=== PATIENT | female | born 1960 | race Caucasian/White ===

== ENCOUNTER 2017-03-07 08:40 | Outpatient (CLI) | payer BC | END 2017-03-07 08:41 | disposition home or self-care (01) | DX: B00.1 Herpesviral vesicular dermatitis (principal) ==

== ENCOUNTER 2017-03-14 15:14 | Outpatient (CLI) | payer BC | END 2017-03-14 15:15 | disposition home or self-care (01) | DX: Z79.899 Other long term (current) drug therapy (principal) ==

== ENCOUNTER 2017-03-19 08:41 | Outpatient (CLI) | payer BC | END 2017-03-19 08:42 | disposition home or self-care (01) | DX: I10 Essential (primary) hypertension (principal); R06.00 Dyspnea, unspecified; R09.89 Other specified symptoms and signs involving the circulatory and respiratory systems; I73.00 Raynaud's syndrome without gangrene ==

== ENCOUNTER 2018-01-27 09:38 | Outpatient (CLI) | payer BC ==
[2018-01-27 18:10] LABS: BASOPHILS % (AUTO) 0.4 %; EOSINOPHILS # (AUTO) 0.1 10^3/uL (0.0-0.7); EOSINOPHILS % (AUTO) 1.6 %; HGB - HEMOGLOBIN 12.8 g/dL (12.0-16.0); LYMPHOCYTES # (AUTO) 1.7 10^3/uL (1.5-3.5); LYMPHOCYTES % (AUTO) 26.6 %; MEAN CORPUSCULAR HEMOGLOBIN 30.2 pg (27.0-31.0); MEAN CORPUSCULAR VOLUME 91.5 fL (81.0-99.0); MEAN PLATELET VOLUME 8.6 fL (7.9-10.8); MONOCYTES # (AUTO) 0.5 10^3/uL (0.0-1.0); MONOCYTES % (AUTO) 7.8 %; NEUTROPHILS # (AUTO) 4.1 10^3/uL (1.5-6.6); NEUTROPHILS % (AUTO) 63.6 %; PLT - PLATELET COUNT 320 10^3/uL (130-450); RED BLOOD COUNT 4.23 10^6/uL (4.20-5.40); RED CELL DISTRIBUTION WIDTH 12.4 % (12.0-15.0); WHITE BLOOD COUNT 6.4 x10^3/uL (4.8-10.8)
[2018-01-27 18:13] LABS: MICROALBUM/CREATININE RATIO,UR 22.9 ug/mg (<30.0)
[2018-01-27 18:15] LABS: ALBUMIN 3.9 g/dL (3.2-5.5); ALBUMIN/GLOBULIN RATIO 1.3 (1.0-2.2); CREATININE 0.7 mg/dL (0.4-1.0); TOTAL PROTEIN 6.9 g/dL (6.7-8.2)
[2018-01-27 19:32] LABS: RHEUMATOID FACTOR NEGATIVE (Negative)
== END 2018-01-27 09:39 | disposition home or self-care (01) ==
LOC: LAB.F 09:38
PROVIDERS: ATTEND Specialist
DX: I73.00 Raynaud's syndrome without gangrene (principal); I10 Essential (primary) hypertension; N20.0 Calculus of kidney
CPT/HCPCS: 36415; 80053; 82043; 82570; 85025; 86430

== ENCOUNTER 2018-02-24 14:49 | Outpatient (CLI) | payer BC ==
[2018-02-24 17:45] LABS: BASOPHILS # (AUTO) 0.1 10^3/uL (0.0-0.1); EOSINOPHILS # (AUTO) 0.1 10^3/uL (0.0-0.7); EOSINOPHILS % (AUTO) 1.6 %; HGB - HEMOGLOBIN 12.6 g/dL (12.0-16.0); LYMPHOCYTES # (AUTO) 2.4 10^3/uL (1.5-3.5); LYMPHOCYTES % (AUTO) 26.5 %; MEAN CORPUSCULAR HEMOGLOBIN 29.5 pg (27.0-31.0); MEAN CORPUSCULAR HGB CONC 32.4 g/dL (32.0-36.0); MEAN PLATELET VOLUME 8.8 fL (7.9-10.8); MONOCYTES # (AUTO) 0.9 10^3/uL (0.0-1.0); MONOCYTES % (AUTO) 9.7 %; NEUTROPHILS # (AUTO) 5.6 10^3/uL (1.5-6.6); NEUTROPHILS % (AUTO) 61.2 %; PLT - PLATELET COUNT 326 10^3/uL (130-450); RED BLOOD COUNT 4.26 10^6/uL (4.20-5.40); WHITE BLOOD COUNT 9.1 x10^3/uL (4.8-10.8)
== END 2018-02-24 14:50 | disposition home or self-care (01) ==
LOC: LAB.F 14:49
PROVIDERS: ATTEND Physician Assistant Surgical
DX: T84.84XA Pain due to internal orthopedic prosthetic devices, implants and grafts, initial encounter (principal)
CPT/HCPCS: 36415; 85025; 85651; 86140

== ENCOUNTER 2019-07-07 16:32 | Outpatient (CLI) | payer BC ==
--- NOTE | 2019-07-08 13:24 | XRAY Report ---
Reason: PAINFUL RT FOOT X MONTHS Procedure Date: 07/07/2019 Accession Number: [id number] / [id number] Procedure: XR - Foot 3 View RT CPT Code: FULL RESULT: EXAM: RIGHT FOOT RADIOGRAPHY EXAM DATE: 07/07/2019 04:44 PM. CLINICAL HISTORY: PAINFUL RT FOOT X MONTHS. COMPARISON: None. TECHNIQUE: 3 views. FINDINGS: Bones: Normal. No fractures or bone lesions. Joints: Normal. No subluxations. Soft Tissues: Normal. No soft tissue swelling. IMPRESSION: Normal foot radiography. RADIA
== END 2019-07-07 16:33 | disposition home or self-care (01) ==
LOC: DI 16:32
PROVIDERS: ATTEND Podiatrist
DX: M79.671 Pain in right foot (principal)

== ENCOUNTER 2019-08-10 07:31 | Outpatient (CLI) | payer BC ==
[2019-08-10 11:42] LABS: ALBUMIN 4.1 g/dL (3.2-5.5); ALBUMIN/GLOBULIN RATIO 1.3 (1.0-2.2); ALKALINE PHOSPHATASE 46 IU/L (42-121); ALT ALANINE AMINOTRANSFERASE 55 IU/L (10-60); AST ASPARTATE AMINOTRANSFERASE 41 IU/L (10-42); BILIRUBIN,TOTAL 1.3 mg/dL (0.2-1.0); BUN - BLOOD UREA NITROGEN 26 mg/dL (6-20); CALCIUM 9.5 mg/dL (8.5-10.3); CARBON DIOXIDE - CO2 32 mmol/L (21-32); CHLORIDE 102 mmol/L (101-111); CHOL/HDL RATIO 3.9 (<4.4); CHOLESTEROL 240 mg/dL; CREATININE 0.7 mg/dL (0.4-1.0); GFR - MDRD 86 (>89); GLUCOSE 87 mg/dL (70-100); HDL CHOLESTEROL 62 mg/dL; LDL CHOLESTEROL,CALCULATED 167 mg/dL; LDL/HDL RATIO 2.7 (<4.4); SODIUM 142 mmol/L (135-145); TOTAL PROTEIN 7.2 g/dL (6.7-8.2); VLDL CHOLESTEROL 11 mg/dL
== END 2019-08-10 07:32 | disposition home or self-care (01) ==
LOC: LAB.S 07:31
PROVIDERS: ATTEND Family Medicine Sports Medicine
DX: I10 Essential (primary) hypertension (principal)
CPT/HCPCS: 36415; 80053; 80061; 83721

== ENCOUNTER 2019-10-15 13:33 | Outpatient (CLI) | payer BC ==
--- NOTE | 2019-10-15 15:47 | MRI Report ---
Reason: CHRONIC PAIN ACHILLES/PERONEAL TENDON Procedure Date: 10/15/2019 Accession Number: [id number] / [id number] Procedure: MRI - Ankle RT W/O CPT Code: Final Report FULL RESULT: EXAM: RIGHT ANKLE/HINDFOOT MRI WITHOUT CONTRAST EXAM DATE: 10/15/2019 03:07 PM. CLINICAL HISTORY: CHRONIC PAIN ACHILLES/PERONEAL TENDON. COMPARISON: FOOT 3 VIEW RT 07/07/2019 4:38 PM. TECHNIQUE: Multiplanar, multisequence T1-weighted and fluid-sensitive sequences of the ankle/hindfoot without contrast. Other: None. FINDINGS: Bones: No fractures or subluxations. No marrow edema. No bone lesions. Articular Cartilage: Unremarkable. Ligaments: The anterior and posterior tibiofibular, anterior and posterior talofibular, and calcaneofibular ligaments are intact. The deep and superficial deltoid and spring ligaments are intact. Anterior Tendons: The tibialis anterior, extensor hallucis longus, and extensor digitorum longus tendons are unremarkable. Medial Tendons: The tibialis posterior, flexor digitorum longus, and flexor hallucis longus tendons are unremarkable. Lateral Tendons: Mild peroneus peroneus brevis tenosynovitis without tear. The peroneus longus is normal. Achilles Tendon: The Achilles tendon is unremarkable. Musculature: No edema or fatty atrophy. Other: A small tibiotalar joint effusion is present. The contents of the sinus tarsi and tarsal tunnel are unremarkable. No plantar fasciitis. The subcutaneous tissues are unremarkable. IMPRESSION: 1. Mild peroneus brevis tenosynovitis without tear. 2. Normal Achilles tendon. 3. Small tibiotalar joint effusion of uncertain source. RADIA
== END 2019-10-15 13:34 | disposition home or self-care (01) ==
LOC: DI 13:33
PROVIDERS: ATTEND Podiatrist
DX: M65.871 Other synovitis and tenosynovitis, right ankle and foot (principal); M25.471 Effusion, right ankle

== ENCOUNTER 2019-12-17 15:20 | Emergency (ER) | payer BC ==
[2019-12-17 15:44] LABS: BILIRUBIN,URINE NEGATIVE (NEGATIVE); GLUCOSE, URINE (UA) NEGATIVE (NEGATIVE); KETONES,URINE (UA) NEGATIVE (NEGATIVE); LEUKOCYTE ESTERASE, URINE NEGATIVE (NEGATIVE); NITRITE,URINE NEGATIVE (NEGATIVE); OCCULT BLOOD,URINE LARGE (NEGATIVE); PH,URINE 5.5 PH (5.0-7.5); PROTEIN,URINE NEGATIVE (NEGATIVE); UROBILINOGEN,URINE 0.2 (NORMAL) E.U./dL (NORMAL)
[2019-12-17 15:47] LABS: CLARITY,URINE HAZY (CLEAR)
[2019-12-17 15:58] LABS: BACTERIA,URINE None Seen /HPF (None Seen); RBC,URINE TNTC /HPF (0-5); SQUAMOUS EPITHELIAL CELL,UR FEW Squamous (<= Few)
--- NOTE | 2019-12-17 18:04 | ED Physician Documentation ---
History of Present Illness - Stated complaint Stated Complaint: F - Chief complaint Chief Complaint: Abd Pain - Additonal information Additional information: This is a 59-year-old female with a history of possible polycystic kidney diseas e, past kidney stones, presents with right flank pain, nausea, vomiting which is now resolved, and blood in her urine. Patient states that in the past she has passed 8 kidney stones, the first 1 required a stent and retrieval. Last night she began having urinary frequency, she notes with a blood in her urine, and she was going to go see her primary care provider but when she was in the car she ni d sudden onset of severe right flank pain associated with nausea. She came here in bed. She has had a complete resolution of her symptoms, now she continues to have a little bit of urgency and frequency, but is not having any pain. Review of Systems Constitutional: denies: Fever Cardiac: denies: Chest pain / pressure Respiratory: denies: Dyspnea GI: reports: Abdominal Pain : reports: Frequency PD PAST MEDICAL HISTORY - Present Medications Home Medications: Ambulatory Orders Medication Instructions Recorded Confirmed Ondansetron Odt [Zofran] 4 mg TL Q6H PRN #10 tablet 12/17/19 Oxycodone HCl/Acetaminophen 1 - 2 each PO Q6H PRN #14 tablet 12/17/19 [Percocet 5-325 mg Tablet] Tamsulosin [Flomax] 0.4 mg PO DAILY #14 capsule 12/17/19 - Allergies Allergies/Adverse Reactions: Allergies Allergy/AdvReac Type Severity Reaction Status Date / Time amoxicillin Allergy Rash Verified 12/17/19 15:29 clindamycin Allergy Rash Verified 12/17/19 15:29 meloxicam Allergy Rash Verified 12/17/19 15:33 Penicillins Allergy Rash Verified 12/17/19 15:29 Sulfa (Sulfonamide Allergy Rash Verified 12/17/19 15:29 Antibiotics) PD ED PE NORMAL - Vitals Vital signs reviewed: Yes - General General: Alert and oriented X 3, No acute distress - HEENT HEENT: PERRL - Neck Neck: Supple, no meningeal sign - Cardiac Cardiac: RRR, No murmur - Respiratory Respiratory: Clear bilaterally - Abdomen Abdomen: Normal bowel sounds, Soft, Non tender, Non distended - Derm Derm: Warm and dry - Extremities Extremities: No deformity - Neuro Neuro: Alert and oriented X 3 - Psych Psych: Normal mood, Normal affect Results - Vitals Vitals: Oxygen O2 Source Room air - Labs Labs: Laboratory Tests 12/17/19 12/17/19 12/17/19 15:36 18:17 18:17 WBC 10.3 RBC 4.35 Hgb 13.2 Hct 40.7 MCV 93.6 MCH 30.3 MCHC 32.4 RDW 12.0 Plt Count 341 MPV 10.0 Neut # (Auto) 7.3 H Lymph # (Auto) 2.0 [place] # (Auto) 0.7 Eos # (Auto) 0.1 Baso # (Auto) 0.1 Absolute Nucleated RBC 0.00 Nucleated RBC % 0.0 Sodium 141 Potassium 3.7 Chloride 104 Carbon Dioxide 26 Anion Gap 11.0 BUN 28 H Creatinine 0.6 Estimated GFR (MDRD) 102 Glucose 97 Calcium 9.9 Total Bilirubin 1.0 AST 17 ALT 18 Alkaline Phosphatase 74 Total Protein 7.9 Albumin 4.5 Globulin 3.4 Albumin/Globulin Ratio 1.3 Lipase 59 H Urine Color YELLOW Urine Clarity HAZY Urine pH 5.5 Ur Specific [place] 1.025 Urine Protein NEGATIVE Urine Glucose (UA) NEGATIVE Urine Ketones NEGATIVE Urine Occult Blood LARGE H Urine Nitrite NEGATIVE Urine Bilirubin NEGATIVE Urine Urobilinogen 0.2 (NORMAL) Ur Leukocyte Esterase NEGATIVE Urine RBC TNTC H Urine WBC 0-3 Ur Squamous Epith Cells FEW Squamous Urine Bacteria None Seen Ur Microscopic Review INDICATED Urine Culture Comments NOT INDICATED - Rads (name of study) CT abd/pelvis Radiology: Other (Likely 2x3mm stone in the distal right ureter, phlebolith also possible.) PD MEDICAL DECISION MAKING - ED course Complexity details: considered differential (Kidney stone, UTI, pyelonephritis, ovarian cyst, MSK pain) ED course: Pt is asymptomatic on my evaluation, her symptoms have passed while she is in the waiting room. Her labs are unremarkable other than blood in her urine without signs of infection. This appears to be a kidney stone clinically and based on the UA, I discussed options for further diagnosis and treatment and given her history of requiring procedures for stone removal and her age Ct was obtained that showed a likely distal R stone. She continues to be asymptomatic. I discussed expectant management, PCP and urology follow up, return precautions. I prescribed pain and nausea medications and tamsulosin. Pt continues to be pain free and was discharged home. I did discuss review of her CT with her PCP for follow up on incidental findings as well. Departure - Departure Disposition: 01 Home, Self Care Clinical Impression: Kidney stone Condition: Good Instructions: ED Stone Renal W Colic Follow-Up: RYAN GAO MD [Primary Care Provider] - Prescriptions: Ondansetron Odt [Zofran] 4 mg TL Q6H PRN #10 tablet PRN Reason: Nausea / Vomiting Oxycodone HCl/Acetaminophen [Percocet 5-325 mg Tablet] 1 - 2 each PO Q6H PRN #14 tablet PRN Reason: pain Tamsulosin [Flomax] 0.4 mg PO DAILY #14 capsule Comments: You likely have a kidney stone in your distal right ureter. I am prescribing you some pain and nausea medications to control your symptoms, which may come back. If you are having severe pain not controlled with the pain medications, fever, or any other concerning symptoms please return to the emergency department. Please also follow-up with your primary care provider to review your CT scan as it had some incidental cysts on your liver and other findings that do not appear to be related to your episode today. Discharge Date/Time: 12/17/19 20:24
[2019-12-17 18:36] LABS: BASOPHILS # (AUTO) 0.1 10^3/uL (0.0-0.1); BASOPHILS % (AUTO) 0.7 %; EOSINOPHILS # (AUTO) 0.1 10^3/uL (0.0-0.7); HGB - HEMOGLOBIN 13.2 g/dL (12.0-16.0); LYMPHOCYTES % (AUTO) 19.7 %; MEAN CORPUSCULAR HEMOGLOBIN 30.3 pg (27.0-31.0); MEAN CORPUSCULAR HGB CONC 32.4 g/dL (32.0-36.0); MEAN CORPUSCULAR VOLUME 93.6 fL (81.0-99.0); MONOCYTES # (AUTO) 0.7 10^3/uL (0.0-1.0); MONOCYTES % (AUTO) 6.8 %; NEUTROPHILS # (AUTO) 7.3 10^3/uL (1.5-6.6); NEUTROPHILS % (AUTO) 71.5 %; PLT - PLATELET COUNT 341 10^3/uL (130-450); RED BLOOD COUNT 4.35 10^6/uL (4.20-5.40); WHITE BLOOD COUNT 10.3 x10^3/uL (4.8-10.8)
[2019-12-17 18:50] LABS: ALBUMIN 4.5 g/dL (3.2-5.5); ALBUMIN/GLOBULIN RATIO 1.3 (1.0-2.2); CALCIUM 9.9 mg/dL (8.5-10.3); CREATININE 0.6 mg/dL (0.4-1.0); TOTAL PROTEIN 7.9 g/dL (6.7-8.2)
--- NOTE | 2019-12-17 19:43 | CT Report ---
Reason: R flank pain, hematuria, ?polycystic dz Procedure Date: 12/17/2019 Accession Number: [id number] / [id number] Procedure: CT - Abdomen/Pelvis WO CPT Code: Final Report FULL RESULT: EXAM: CT ABDOMEN AND PELVIS (CT KUB) EXAM DATE: 12/17/2019 06:47 PM. CLINICAL HISTORY: Right flank pain and hematuria. Question polycystic disease. COMPARISONS: CT abdomen/pelvis 09/16/2012. TECHNIQUE: Routine axial helical CT imaging was performed through the abdomen and pelvis without IV contrast. Reconstructions: Coronal and sagittal. In accordance with CT protocol optimization, one or more of the following dose reduction techniques were utilized for this exam: automated exposure control, adjustment of mA and/or KV based on patient size, or use of iterative reconstructive technique. FINDINGS: The lack of intravenous contrast limits evaluation of the solid organs and vascular structures. Imaged chest: Unremarkable. Liver: The liver demonstrates a few scattered tiny subcentimeter low-density foci, technically too small to accurately characterize and indeterminant but statistically likely to represent tiny cysts. Gallbladder: Unremarkable. Biliary: Unremarkable. Pancreas: Unremarkable. Spleen: Unremarkable. Adrenal glands: Unremarkable. Kidneys: Nonobstructing bilateral renal parenchymal stones. There is a new 2 x 3 mm calcification within the right pelvis adjacent to versus within the distal right ureter. There is a 4.4 cm simple appearing cyst within the interpolar region of the left kidney. Urinary bladder: Unremarkable. Reproductive organs: Hysterectomy. Bowel: Unremarkable. Stomach: Unremarkable. Appendix: The appendix is not reliably identified. Surgical clip adjacent to the cecum suggests prior appendectomy. Miscellaneous: No free fluid. No extraluminal gas. Aorta: No significant aortic atherosclerosis. Normal in caliber. Lymph nodes: No pathologically enlarged lymph nodes identified. Bones: Grade 1 anterolisthesis L4 and L5, similar to prior. No suspicious osseous lesions. Sidewalls: Unremarkable. IMPRESSION: 1. Nonobstructing bilateral renal parenchymal stones. 2. No hydronephrosis. There is a 2 x 3 mm calcification within the right pelvis adjacent to versus within the distal right ureter. Differential includes phlebolith adjacent to the right ureter versus nonobstructing ureteral stone. 3. Other chronic findings detailed above. RADIA
[2019-12-17 20:09] VITALS: BP 157/103
[2019-12-17] MEDS ORDERED: oxyCODONE/ACET 5/325 Prepack 4 PO STA (20:17)
[2019-12-17] MEDS ORDERED: TAMSULOSIN 0.4 MG CAPSULE PO STA (20:36)
[2019-12-18] MEDS ORDERED: TAMSULOSIN 0.4 MG CAPSULE PO SCH (09:00)
== END 2019-12-17 20:24 | disposition home or self-care (01) ==
LOC: ED 15:20
DX: N20.1 Calculus of ureter (principal); Q61.3 Polycystic kidney, unspecified
CPT/HCPCS: 36415; 74176; 80053; 81001; 83690; 85025; 99284; A9270; 81003; 87086

== ENCOUNTER 2022-02-27 08:00 | Outpatient (CLI) | payer BC ==
[2022-02-27 14:52] LABS: BILIRUBIN,URINE NEGATIVE (NEGATIVE); CLARITY,URINE CLEAR (CLEAR); GLUCOSE, URINE (UA) NEGATIVE (NEGATIVE); KETONES,URINE (UA) NEGATIVE (NEGATIVE); LEUKOCYTE ESTERASE, URINE NEGATIVE (NEGATIVE); NITRITE,URINE NEGATIVE (NEGATIVE); OCCULT BLOOD,URINE SMALL (NEGATIVE); PROTEIN,URINE NEGATIVE (NEGATIVE); UROBILINOGEN,URINE 0.2 (NORMAL) E.U./dL (NORMAL)
[2022-02-27 15:40] LABS: BACTERIA,URINE None Seen /HPF (None Seen); RBC,URINE 0-5 /HPF (0-5); SQUAMOUS EPITHELIAL CELL,UR FEW Squamous (<= Few); WBC,URINE 0-3 /HPF (0-5)
== END 2022-02-27 23:59 ==
LOC: LAB.R 08:00
PROVIDERS: ATTEND Emergency Medicine
DX: R31.9 Hematuria, unspecified (principal)
CPT/HCPCS: 81001; 87086

== ENCOUNTER 2023-04-04 07:11 | Outpatient (CLI) | payer BC ==
[2023-04-04 14:56] LABS: BUN - BLOOD UREA NITROGEN 25 mg/dL (6-20); CALCIUM 9.4 mg/dL (8.5-10.3); CARBON DIOXIDE - CO2 28 mmol/L (21-32); CHLORIDE 105 mmol/L (101-111); CHOL/HDL RATIO 2.8 (<4.4); CHOLESTEROL 245 mg/dL; CREATININE 0.6 mg/dL (0.4-1.0); GFR - MDRD 101 (>89); GLUCOSE 97 mg/dL (70-100); HDL CHOLESTEROL 87 mg/dL; LDL CHOLESTEROL,CALCULATED 149 mg/dL; LDL/HDL RATIO 1.7 (<4.4); SODIUM 140 mmol/L (135-145); TRIGLYCERIDES 46 mg/dL; VLDL CHOLESTEROL 9 mg/dL
== END 2023-04-04 07:12 | disposition home or self-care (01) ==
LOC: LAB.S 07:11
PROVIDERS: ATTEND Internal Medicine Cardiovascular Disease
DX: I10 Essential (primary) hypertension (principal)
CPT/HCPCS: 36415; 80048; 80061; 83721

== ENCOUNTER 2023-08-07 08:00 | Outpatient (CLI) | payer BC | END 2023-08-07 23:59 | disposition home or self-care (01) | LOC: LAB.S 08:00 | PROVIDERS: ATTEND Registered Nurse | DX: R30.0 Dysuria (principal) | CPT/HCPCS: 87086 ==

== ENCOUNTER 2023-09-22 13:57 | Emergency (ER) | payer BC ==
[2023-09-22 14:29] LABS: BASOPHILS # (AUTO) 0.1 10^3/uL (0.0-0.1); BASOPHILS % (AUTO) 1.3 %; EOSINOPHILS # (AUTO) 0.1 10^3/uL (0.0-0.7); HCT - HEMATOCRIT 44.4 % (37.0-47.0); HGB - HEMOGLOBIN 14.3 g/dL (12.0-16.0); LYMPHOCYTES # (AUTO) 2.3 10^3/uL (1.5-3.5); LYMPHOCYTES % (AUTO) 28.5 %; MEAN CORPUSCULAR HEMOGLOBIN 29.7 pg (27.0-31.0); MEAN CORPUSCULAR HGB CONC 32.2 g/dL (32.0-36.0); MEAN CORPUSCULAR VOLUME 92.3 fL (81.0-99.0); MEAN PLATELET VOLUME 9.9 fL (7.9-10.8); MONOCYTES # (AUTO) 0.6 10^3/uL (0.0-1.0); MONOCYTES % (AUTO) 7.8 %; NEUTROPHILS # (AUTO) 4.8 10^3/uL (1.5-6.6); NEUTROPHILS % (AUTO) 61.3 %; PLT - PLATELET COUNT 366 10^3/uL (130-450); RED BLOOD COUNT 4.81 10^6/uL (4.20-5.40); RED CELL DISTRIBUTION WIDTH 12.1 % (12.0-15.0); WHITE BLOOD COUNT 7.9 x10^3/uL (4.8-10.8)
[2023-09-22 14:43] LABS: ALBUMIN 4.5 g/dL (3.2-5.5); ALBUMIN/GLOBULIN RATIO 1.5 (1.0-2.2); CREATININE 0.7 mg/dL (0.6-1.3); POTASSIUM 3.9 mmol/L (3.5-4.5); TOTAL PROTEIN 7.6 g/dL (6.4-8.9)
--- NOTE | 2023-09-22 14:45 | ED Physician Documentation ---
PD HPI CHEST PAIN - Stated complaint Stated Complaint: CHEST PX - Chief complaint Chief Complaint: Cardiac - History obtained from History obtained from: Patient - Additional information Additional information: This is a 63-year-old female who has a longstanding history of hypertension and is followed by cardiology for this. She is currently on losartan 100 mg that she takes nightly. She previously was also on metoprolol but had adverse effects to this medication thus stopped taking it about a week and a half ago. Patient has also had adverse effects to numerous other classes of medicine incl uding amlodipine, hydralazine, carvedilol, lisinopril, Miladis Dralzine, and hydrochlorothiazide. The patient states that today or for the last couple of days her blood pressure has been somewhat elevated but she thought possibly due to the fact that she was taking some cold medication. She states she did look it up online and it was apparently safe for hypertension but she did note that her blood pressure increased while taking this medication. She has also been taking Aleve the last couple days but stopped yesterday when she noted that her blood pressure was elevated. Patient states that she did have a mild headache that was different than her regular migraines and that she checked her blood pressure and it has been in the 190s over 100s. She did have some mild left- sided nonradiating chest pain at that time but that has since gone away. She does not currently have any chest pain.She did talk to her primary doctor who encouraged her to come into the ER due to her hypertensionAnd chest pain. The patient states that it is elevated more now because shortly prior to coming in she I had a family disagreement and feels somewhat worked up from that. She is not at any point had shortness of breath, no abdominal pain nausea vomiting or diarrhea, no diaphoresis though patient notes that she did have diaphoresis with metoprolol which is why she stopped taking it. She has not had any lower extremity edema. She is voiding well. She states she does not always adhere to a low-salt diet but tries to do so, she exercises daily sometimes 2 to 2-1/2 hours and states her blood pressure typically is quite low controlled for for 5 hours after she exercises but then it will increase. Her baseline blood pressures in the 160 170/90 range. Review of Systems Constitutional: reports: Reviewed and negative Eyes: reports: Reviewed and negative Ears: reports: Reviewed and negative Nose: reports: Reviewed and negative Throat: reports: Reviewed and negative Cardiac: reports: Reviewed and negative Respiratory: reports: Reviewed and negative GI: reports: Reviewed and negative : reports: Reviewed and negative Skin: reports: Reviewed and negative Musculoskeletal: reports: Reviewed and negative Neurologic: reports: Reviewed and negative PD PAST MEDICAL HISTORY - Past Medical History Past Medical History: Yes Cardiovascular: Hypertension - Present Medications Home Medications: Ambulatory Orders Medication Instructions Recorded Confirmed Ondansetron Odt [Zofran] 4 mg TL Q6H PRN #10 tablet 12/17/19 Oxycodone HCl/Acetaminophen 1 - 2 each PO Q6H PRN #14 tablet 12/17/19 [Percocet 5-325 mg Tablet] Tamsulosin [Flomax] 0.4 mg PO DAILY #14 capsule 12/17/19 cloNIDine 0.1 MG PATCH 1 each TOP Q7D #10 patch 09/22/23 [[id number]] - Allergies Allergies/Adverse Reactions: Allergies Allergy/AdvReac Type Severity Reaction Status Date / Time amoxicillin Allergy Rash Verified 09/22/23 14:05 clindamycin Allergy Rash Verified 09/22/23 14:05 meloxicam Allergy Rash Verified 09/22/23 14:05 Penicillins Allergy Rash Verified 09/22/23 14:05 Sulfa (Sulfonamide Allergy Rash Verified 09/22/23 14:05 Antibiotics) - Social History Does the pt smoke?: No Smoking Status: Never smoker PD ED PE NORMAL - Vitals Vital signs reviewed: Yes - General General: Alert and oriented X 3, No acute distress, Well developed/nourished, Other (Very pleasant, hyperverbal) - HEENT HEENT: Atraumatic, PERRL, EOMI, Moist mucous membranes - Neck Neck: Supple, no meningeal sign, No adenopathy - Cardiac Cardiac: RRR, No murmur, No gallop, No rub, Strong equal pulses - Respiratory Respiratory: No respiratory distress, Clear bilaterally - Abdomen Abdomen: Normal bowel sounds, Soft, Non tender, Non distended - Derm Derm: Normal color, Warm and dry, No rash - Neuro Neuro: Alert and oriented X 3 Eye Opening: Spontaneous Motor: Obeys Commands Verbal: Oriented GCS Score: 15 - Psych Psych: Normal mood, Other (anxious, stimulated affect) Results - Vitals Vitals: Vital Signs - 24 hr 09/22/23 09/22/23 09/22/23 14:05 14:45 16:09 Temperature 365 C H Heart Rate 73 75 77 Respiratory 16 15 14 Rate Blood Pressure 200/119 H 213/115 H 169/97 H O2 Saturation 98 98 98 09/22/23 18:00 Temperature Heart Rate 66 Respiratory 15 Rate Blood Pressure 144/84 H O2 Saturation 99 Oxygen O2 Source Room air - EKG (time done) No standard instances EKG releavant findings:: EKG personally interpreted by author of this note. Relevant findings are: Repeat EKG at 1714 remains NSR without acute ischemic changes. Rate: Rate (enter#) (70) Rhythm: NSR [place]: Normal Intervals: Normal LA QRS: Normal Ischemia: Normal ST segments Computer interpretation: Agree with computer - Labs Labs: Laboratory Tests 09/22/23 09/22/23 09/22/23 14:24 14:24 15:42 WBC 7.9 RBC 4.81 Hgb 14.3 Hct 44.4 MCV 92.3 MCH 29.7 MCHC 32.2 RDW 12.1 Plt Count 366 MPV 9.9 Neut # (Auto) 4.8 Lymph # (Auto) 2.3 [place]ie # (Auto) 0.6 Eos # (Auto) 0.1 Baso # (Auto) 0.1 Absolute Nucleated RBC 0.00 Nucleated RBC % 0.0 Sodium 139 Potassium 3.9 Chloride 102 Carbon Dioxide 33 H Anion Gap 4.0 L BUN 26 H Creatinine 0.7 Estimated GFR (MDRD) 85 L Glucose 92 Calcium 10.0 Total Bilirubin 1.0 AST 37 ALT 62 H Alkaline Phosphatase 69 Troponin I High Sens 42.5 H* 47.7 H* Total Protein 7.6 Albumin 4.5 Globulin 3.1 Albumin/Globulin Ratio 1.5 Lipase 21 09/22/23 17:13 WBC RBC Hgb Hct MCV MCH MCHC RDW Plt Count MPV Neut # (Auto) Lymph # (Auto) [place] # (Auto) Eos # (Auto) Baso # (Auto) Absolute Nucleated RBC Nucleated RBC % Sodium Potassium Chloride Carbon Dioxide Anion Gap BUN Creatinine Estimated GFR (MDRD) Glucose Calcium Total Bilirubin AST ALT Alkaline Phosphatase Troponin I High Sens 52.1 H* Total Protein Albumin Globulin Albumin/Globulin Ratio Lipase PD Medical Decision Making - ED course Complexity details: reviewed results, re-evaluated patient, considered differential, d/w patient ED course: 63-year-old female presented with hypertension as well as chest discomfort though had no chest discomfort on arrival here. The patient is very anxious, her blood pressure is quite elevated in the 215/115 range on arrival there was concern for ACS versus hypertensive emergency versus CHF versus anxiety. The patient had an initial EKG which showed no acute ischemic changes and labs were obtained which were generally reassuring aside from mildly elevated troponin at 42. This coincided with better blood pressure of the 215/115 range. The patient was not having any chest pain at that time and did therefore after extensive discussion with patient and review all of the antihypertensives that she had tried in the past with side effects, we did give her a clonidine patch for blood pressure control. Her blood pressure did slowly drop into the 160s over 90s. The patient felt better aside from a brief few second. Of chest discomfort at which time a repeat troponin was obtained which was flat 47, and a repeat EKG showed no acute ischemic changes. Her blood pressure continued to improve and patient had improvement in her symptoms. A third troponin again is flat around 50. I did discuss this with the ED attending as well as a hospitalist to determine if any indication for inpatient admission for stress test and there is not as patient has no acute ischemic changes and a flat troponin likely secondary to her significant hypertension. I have advised the patient to call her upstream biomanufacturing technician tomorrow at the [facility] and schedule a outpatient stress test as soon as available ideally within the next week. The patient should continue the clonidine patch which is a 7-day patch and I have also prescribed refills and I would like her to talk with her upstream biomanufacturing technician about whether or not this is the best medication for her going forward though she does have a number of allergies and has tried essentially all other categories of medication without success. She should continue her losartan and adhere to a low-salt diet, I discussed return precautions if she had recurrence of chest pain or other symptoms such as shortness of breath, nausea, weakness, diaphoresis or other new concerns. Patient was a discharged home in stable condition with plans to follow-up with cardiology as soon as available. Departure - Departure Disposition: 01 Home, Self Care Clinical Impression: Hypertensive urgency, Elevated troponin level not due to acute coronary syndrome Condition: Good Instructions: Hypertension Control, ED Chest Pain Atypical Unkn Cause Prescriptions: cloNIDine 0.1 MG PATCH [Feesvger-Cut-5] 1 each TOP Q7D #10 patch Comments: You had extremely elevated blood pressure today but it has improved with the initiation of a clonidine patch. This needs to be changed every 7 days and I have given you a prescription for this. Please continue your losartan. You will also need to have an outpatient stress test as soon as possible. Please call your upstream biomanufacturing technician at the [facility] to schedule this. Try to adhere to a low-salt diet and maintain compliance with your medications. If you have worsening symptoms at any point in time, please return to the ER. Forms: PCP List Discharge Date/Time: 09/22/23 18:45
--- NOTE | 2023-09-22 14:45 | XRAY Report ---
PROCEDURE: Chest 1 View X-Ray INDICATIONS: Chest pain TECHNIQUE: One view of the chest was acquired. COMPARISON: None. FINDINGS: Surgical changes and devices: Bilateral shoulder arthroplasties are partially visualized. Partially visualized facial hardware. Lungs and pleura: No pleural effusions or pneumothorax. Lungs are clear. Mediastinum: Mediastinal contours appear normal. Heart size is normal. Bones and chest wall: No suspicious bony lesions. Overlying soft tissues appear unremarkable. IMPRESSION: No acute cardiopulmonary process. Reviewed by: Abrahan Tamayo MD on 09/22/2023 2:43 PM PDT Approved by: Abrahan Tamayo MD on 09/22/2023 2:43 PM PDT Station ID: [id number]
[2023-09-22 14:51] LABS: TROPONIN I HIGH SENSITIVITY 42.5 ng/L (2.3-14.8)
[2023-09-22] MEDS ORDERED: cloNIDine 0.1 MG PATCH TOP STA (15:04)
[2023-09-22 18:10] VITALS: BP 144/84; O2SAT 99
== END 2023-09-22 18:45 | disposition home or self-care (01) ==
LOC: ED 13:57
DX: I16.0 Hypertensive urgency (principal); R79.89 Other specified abnormal findings of blood chemistry; I10 Essential (primary) hypertension
CPT/HCPCS: 36415; 71045; 80053; 83690; 84484; 85025; 93005; 99284; A9270

== ENCOUNTER 2024-05-06 11:08 | Outpatient (CLI) | payer BC ==
[2024-05-06 14:37] LABS: BILIRUBIN,URINE NEGATIVE (NEGATIVE); GLUCOSE, URINE (UA) NEGATIVE (NEGATIVE); KETONES,URINE (UA) NEGATIVE (NEGATIVE); LEUKOCYTE ESTERASE, URINE NEGATIVE (NEGATIVE); NITRITE,URINE NEGATIVE (NEGATIVE); OCCULT BLOOD,URINE LARGE (NEGATIVE); PROTEIN,URINE NEGATIVE (NEGATIVE); UROBILINOGEN,URINE 0.2 (NORMAL) E.U./dL (NORMAL)
[2024-05-06 14:43] LABS: CLARITY,URINE CLOUDY (CLEAR)
[2024-05-06 15:03] LABS: BACTERIA,URINE Moderate /HPF (None Seen); RBC,URINE TNTC /HPF (0-5); SQUAMOUS EPITHELIAL CELL,UR FEW Squamous (<= Few); WBC,URINE 0-3 /HPF (0-5)
[2024-05-06 15:18] LABS: CALCIUM 10.1 mg/dL (8.5-10.3); CREATININE 0.8 mg/dL (0.6-1.3); POTASSIUM 4.3 mmol/L (3.5-4.5)
== END 2024-05-06 11:09 | disposition home or self-care (01) ==
LOC: LAB.S 11:08
PROVIDERS: ATTEND Internal Medicine Cardiovascular Disease
DX: R31.9 Hematuria, unspecified (principal)
CPT/HCPCS: 36415; 80048; 81001; 82550